=== PATIENT | male | born 1995 | race American Indian/Alaskan Native ===

== ENCOUNTER 2019-02-06 12:12 | Observation (INO) | payer MEDICAID ==
[2019-02-06] MEDS ORDERED: Acetaminophen 325 MG Tab PO PRN (12:43)
--- NOTE | 2019-02-06 12:57 | PCM.HP ---
H&P History of Present Illness - General Date of Service: 02/06/19 Admit Problem/Dx: Admission Diagnosis/Problem Admission Diagnosis/Problem Poor feeding Source of Information: EMS Notes Reviewed, Family, Alf Records History Limitations: Reports: Physical Impairment - History of Present Illness Initial Comments - Free Text/Narative: Patient is resident of [facility] in [place] with PMH remarkable for cerebral palsy, profound intellectual disability/ developmental delay, legal blindness. He requires 24/7 care. He is poor historian due to profound developmental delay.Services that follow with patient include Audiology, Optometry, PT/OT, Practical Nursing Faculty, and Psychiatrist/Psychologist.Patient recently evaluated by Psychiatry- placed on Lexapro daily, as well as Ativan PRN. He was transferred from the clinic today for poor oral intake. As per healthcare recruiter, patient developed oral/cold sores about 2 to 3 weeks ago. They have applied OTC cold sore treatment without relief.As a result he is not been able to feed well. This has gotten worse so was brought to the clinic. He has not had fever or chills. No nausea, vomiting, diarrhea, cough. Hospitalist was consulted for admission for further management. Onset of Symptoms: Reports: Gradual Duration of Symptoms: Reports: Day(s): Improves with: Reports: None Worsens with: Reports: None Associated Symptoms: Reports: No Other Symptoms - Related Data Allergies/Adverse Reactions: Allergies Allergy/AdvReac Type Severity Reaction Status Date / Time No Known Allergies Allergy Verified 02/06/19 12:16 H&P Review of Systems - Review of Systems: Review Of Systems: Unable To Obtain (Info obtained from healthcare recruiter.) General: Reports: No Symptoms HEENT: Reports: No Symptoms Pulmonary: Reports: No Symptoms Cardiovascular: Reports: No Symptoms Gastrointestinal: Reports: No Symptoms Genitourinary: Reports: No Symptoms Musculoskeletal: Reports: No Symptoms Skin: Reports: No Symptoms Psychiatric: Reports: No Symptoms Neurological: Reports: No Symptoms Hematologic/Lymphatic: Reports: No Symptoms Immunologic: Reports: No Symptoms Exam - Exam Exam: See Below - Vital Signs Vital Signs: Last Vital Signs Temp 98.1 F 02/06/19 12:16 Pulse Resp BP Pulse Ox Weight: 86 lb 6.4 oz - Exam General: Alert, Oriented, 4 HEENT: TMs Clear, Other (Patient not cooperative. Poor oral hygiene note. Superficial ulcer note on hard palate.) Neck: Supple, Trachea Midline, 2 Lungs: Clear to Auscultation, Normal Respiratory Effort Cardiovascular: Regular Rate, Regular Rhythm GI/Abdominal Exam: Normal Bowel Sounds, Soft, Non-Tender, No Organomegaly, No Distention, No Abnormal Bruit, No Mass, Pelvis Stable (Male) Exam: No Hernia, Normal Inspection, Normal Prostate, Circumcised Rectal (Males) Exam: Normal Exam, Normal Rectal Tone, Prostate Normal Back Exam: Normal Inspection, Full Range of Motion, NT Extremities: Normal Inspection, Normal Range of Motion, Non-Tender, No Pedal Edema, Normal Capillary Refill Skin: Warm, Dry, Intact Neurological: Cranial Nerves Intact, Reflexes Equal Bilateral Neuro Extensive - Mental Status: Alert, Oriented x3, Normal Mood/Affect, Normal Cognition Neuro Extensive - Motor, Sensory, Reflexes: CN II-XII Intact, Normal Gait, Normal Reflexes Psychiatric: Alert, Normal Affect, Normal Mood - Problem List (1) Poor appetite SNOMED Code(s): 62890470 ICD Code: R63.0 - ANOREXIA Status: Acute Current Visit: Yes (2) Poor oral hygiene SNOMED Code(s): 569277140 ICD Code: Z91.89 - OTH PERSONAL RISK FACTORS, NOT ELSEWHERE CLASSIFIED Status: Acute Current Visit: Yes (3) Aphthous ulcer SNOMED Code(s): 480303358 ICD Code: K12.0 - RECURRENT ORAL APHTHAE Status: Acute Current Visit: Yes (4) Mental and behavioral problem SNOMED Code(s): 546983693 ICD Code: F48.9 - NONPSYCHOTIC MENTAL DISORDER, UNSPECIFIED; F69 - UNSPECIFIED DISORDER OF ADULT PERSONALITY AND BEHAVIOR Status: Acute Current Visit: Yes Problem List Initiated/Reviewed/Updated: Yes Orders Last 24hrs: Active Orders 24 hr Category Date Time Status Patient Status [ADT] Routine ADT 02/06/19 12:43 Ordered Ambulate [RC] ASDIRECTED Care 02/06/19 12:43 Ordered Antiembolic Devices [RC] .Routine Care 02/06/19 12:46 Ordered Intake and Output [RC] QSHIFT Care 02/06/19 12:45 Ordered Notify Provider Vital Signs [RC] ASDIRECTED Care 02/06/19 12:45 Ordered VTE/DVT Education [RC] PER UNIT ROUTINE Care 02/06/19 12:46 Ordered Vital Signs [RC] Q4H Care 02/06/19 12:43 Ordered Consult to Community Nursing Services [Consult to Home Cons 02/06/19 12:48 Ordered Health] [CONS] Routine Regular Diet [DIET] Diet 02/06/19 Lunch Ordered BASIC METABOLIC PANEL,BMP [CHEM] Routine Lab 02/06/19 12:43 Ordered CBC WITH AUTO DIFF [HEME] Routine Lab 02/06/19 12:43 Ordered Acetaminophen [Tylenol] Med 02/06/19 12:43 Ordered 650 mg PO Q6H PRN Dextrose 5%-Normal Saline @ 75 MLS/HR(1000ml) Med 02/06/19 13:00 Ordered Dextrose 5%-0.9% NaCl [Dextrose 5%-Normal Saline] 1,000 ml IV ASDIRECTED Heparin Sodium Med 02/06/19 12:45 Ordered 5,000 units SUBCUT Q12H DVT/VTE Prophylaxis Reflex [OM.PC] Routine Oth 02/06/19 12:43 Ordered Resuscitation Status Routine Resus Stat 02/06/19 12:43 Ordered Medication Orders Acetaminophen (Tylenol) 650 mg PO Q6H PRN PRN Reason: Pain (mild 1-3 )/fever Heparin Sodium (Porcine) (Heparin Sodium) 5,000 units SUBCUT Q12H LINDA Assessment/Plan Comment:: Jordi a 23 y.o.male[facility] alf in [place].PMH remarkable for cerebral palsy, profound intellectual disability/ developmental delay, legal blindness. He was brought to the clinic today due to poor oral intake. Poor Oral intake due to Alphthous ulcers with poor oral hygiene Admit to general medical floor monitor vitals IV hydration with D5 in 0.9% N/S @ 75 cc Ensure proper oral hygiene Magic mouth wash 4 x daily Send for routine labs, cbc, BMP Cerebral palsy/profound intellectual disability/developmental delay/legal blindness. Was recently placed on lexapro daily, as well as Ativan PRN by psychiatry. Will continue Regular diet Full code
[2019-02-06] MEDS: LORazepam 1 MG Tab PO PRN ×2 (13:41→22:11)
[2019-02-06] MEDS: LIDOCAINE 2% PO SCH ×9 (13:59→22:12)
[2019-02-06] MEDS: SIMETH PO SCH ×9 (13:59→22:12)
[2019-02-06] MEDS: ALUM HYDROX PO SCH ×9 (13:59→22:12)
[2019-02-06] MEDS: MAG HYDROX PO SCH ×9 (13:59→22:12)
[2019-02-06] MEDS: DIPHENHYDRAMINE PO SCH ×9 (13:59→22:12)
[2019-02-06] MEDS: Dextrose 5%-0.9% NaCl 1,000 ML IV SCH (15:28)
[2019-02-06 15:29] LABS: ANION GAP 11.7; CHLORIDE,CL 105 mmol/L (101-111); SODIUM,NA 142 mmol/L (135-145)
[2019-02-06] MEDS ORDERED: Non-Formulary Medication 1 Each PO SCH (17:00)
[2019-02-06] MEDS ORDERED: Escitalopram 10 MG Tab PO SCH (21:00)
[2019-02-06] MEDS: Hydrocortisone 2.5% Crm 30 GM Tube TOP SCH (22:09)
[2019-02-06] MEDS: Heparin Sodium 5,000 Units/ML Vial SUBCUT SCH (22:11)
[2019-02-07] MEDS: Dextrose 5%-0.9% NaCl 1,000 ML IV SCH (04:07)
[2019-02-07] MEDS: LIDOCAINE 2% PO SCH ×3 (09:40)
[2019-02-07] MEDS: Heparin Sodium 5,000 Units/ML Vial SUBCUT SCH (09:40)
[2019-02-07] MEDS: MAG HYDROX PO SCH ×3 (09:40)
[2019-02-07] MEDS: ALUM HYDROX PO SCH ×3 (09:40)
[2019-02-07] MEDS: DIPHENHYDRAMINE PO SCH ×3 (09:40)
[2019-02-07] MEDS: SIMETH PO SCH ×3 (09:40)
[2019-02-07] MEDS: Hydrocortisone 2.5% Crm 30 GM Tube TOP SCH (09:55)
--- NOTE | 2019-02-07 10:34 | PCM.DCSUM1 ---
Discharge Summary - Hospital Course Free Text/Narrative:: Patient is resident of [facility] in [place] with PMH remarkable for cerebral palsy, profound intellectual disability/ developmental delay, legal blindness. He requires 24/7 care. He is poor historian due to profound developmental delay.Services that follow with patient include Audiology, Optometry, PT/OT, Ophthalmic Technician Apprentice, and Psychiatrist/Psychologist.Patient recently evaluated by Psychiatry- placed on Lexapro daily, as well as Ativan PRN. He was transferred to the hospital for poor oral intake. As per ambulatory care coordinator, patient developed oral/cold sores about 2 to 3 weeks ago. They have applied OTC cold sore treatment without relief.Patient was admitted to the hospital and hydrated with intravenous fluids. We started him on combination of lidocaine and Benadryl for this. He has improved. [facility] Final diagnosis Malnutrition Profound developmental delay Cerebral palsy Aphtous Ulcers - Discharge Data Discharge Date: 02/07/19 Discharge Disposition: Home, Self-Care 01 Condition: Good - Patient Summary/Data Consults: Consultations 02/06/19 12:48 Consult to Community Nursing Services [Consult to Home Health] [CONS] Routine - Patient Instructions Activity: As Tolerated Driving: Do Not Drive - Discharge Plan Prescriptions/Med Rec: Acetaminophen [Tylenol] 650 mg PO Q6H PRN #30 tablet PRN Reason: Pain (mild 1-3 )/fever Alum Hydrox/Mag Hydrox/Simeth [Mag-Al Plus] 30 ml PO QID 5 Days #15 cup diphenhydrAMINE [Benadryl] 30 mg PO QID 5 Days #200 cup Lidocaine 2% [Xylocaine 2% Viscous] 30 ml PO QID #5 cup Home Medications: Home Meds Escitalopram [Lexapro] 10 mg PO BEDTIME 02/06/19 [History] Hydrocortisone [Hydrocortisone 2.5% Crm] 1 applic TOP BID 02/06/19 [History] LORazepam [Ativan] 2 mg PO Q8HR PRN 02/06/19 [History] Acetaminophen [Tylenol] 650 mg PO Q6H PRN #30 tablet 02/07/19 [Rx] Alum Hydrox/Mag Hydrox/Simeth [Mag-Al Plus] 30 ml PO QID 5 Days #15 cup [Rx] Lidocaine 2% [Xylocaine 2% Viscous] 30 ml PO QID #5 cup 02/07/19 [Rx] diphenhydrAMINE [Benadryl] 30 mg PO QID 5 Days #200 cup 02/07/19 [Rx] Patient Handouts: Lidocaine oral solution, Acetaminophen tablets or caplets, Aluminum Hydroxide; Magnesium Hydroxide; Simethicone oral suspension, Diphenhydramine oral syrup or elixir - Discharge Summary/Plan Comment DC Time >30 min.: Yes - General Info Date of Service: 02/07/19 Subjective Update: Limited hx due to pateint factor Functional Status: Reports: Pain Controlled, Tolerating Diet - Review of Systems General: Reports: No Symptoms Psychiatric: Reports: Other (Restless) - Patient Data Vitals - Most Recent: Last Vital Signs Temp 36.7 C 02/07/19 05:52 Pulse 88 02/07/19 05:52 Resp 18 02/07/19 05:52 BP 105/69 02/06/19 22:00 Pulse Ox 98 02/07/19 05:52 Weight - Most Recent: 35.289 kg I&O - Last 24 hours: Intake & Output 02/06/19 02/07/19 02/07/19 22:59 06:59 14:59 Intake Total 240 973 248 Balance 240 973 248 Lab Results - Last 24 hrs: Laboratory Results - last 24 hr 02/06/19 02/06/19 02/06/19 Range/Units 15:10 15:10 23:50 WBC 8.1 (5.0-10.0) 10^3/uL RBC 4.73 (4.6-6.2) 10^6/uL Hgb 13.2 L (14.0-18.0) g/dL Hct 40.2 (40.0-54.0) % MCV 85.0 (80-100) fL MCH 27.9 (27.0-34.0) pg MCHC 32.8 L (33.0-35.0) g/dL Plt Count 190 (150-450) 10^3/uL Neut % (Auto) 63.3 (42.2-75.2) % Lymph % (Auto) 20.3 L (20.5-50.1) % [place] % (Auto) 14.5 H (2-8) % Eos % (Auto) 1.7 (1.0-3.0) % Baso % (Auto) 0.2 (0.0-1.0) % Sodium 142 (135-145) mmol/L Potassium 3.7 (3.6-5.0) mmol/L Chloride 105 (101-111) mmol/L Carbon Dioxide 29.0 (21.0-31.0) mmol/L Anion Gap 11.7 BUN 21 H (7-18) mg/dL Creatinine 0.7 (0.6-1.3) mg/dL Est Cr Clr Drug Dosing TNP Estimated GFR (MDRD) > 60 Glucose 120 H (74-105) mg/dL Calcium 9.0 (8.4-10.2) mg/dl HIV-1 Antibody Non-reactive (NONREACTIVE) HIV-2 Antibody Non-reactive (NONREACTIVE) HIV P24 Antigen Non-reactive (NONREACTIVE) Med Orders - Current: Current Medications Acetaminophen (Tylenol) 650 mg PO Q6H PRN PRN Reason: Pain (mild 1-3 )/fever Lidocaine HCl 30 ml/ Al Hydroxide/Mg Hydroxide 30 ml/Diphenhydramine HCl 30 mg 0 ml PO QID [facility] Last Admin: 02/07/19 09:40 Dose: 5 ml Escitalopram Oxalate (Lexapro) 10 mg PO BEDTIME [facility] Last Admin: 02/06/19 22:11 Dose: 10 mg Heparin Sodium (Porcine) (Heparin Sodium) 5,000 units SUBCUT Q12H [facility] Last Admin: 02/07/19 09:40 Dose: Not Given Hydrocortisone (Hydrocortisone 2.5% Crm) 0 gm TOP BID [facility] Last Admin: 02/07/19 09:55 Dose: Not Given Dextrose/Sodium Chloride (Dextrose 5%-Normal Saline) 1,000 mls @ 75 mls/hr IV ASDIRECTED [facility] Last Admin: 02/07/19 04:07 Dose: 75 mls/hr Lorazepam (Ativan) 2 mg PO Q8HR PRN PRN Reason: Anxiety Last Admin: 02/06/19 22:11 Dose: 2 mg - Exam General: Reports: Other (Restless but at baseline) Lungs: Reports: Clear to Auscultation, Normal Respiratory Effort Cardiovascular: Reports: Regular Rate, Regular Rhythm GI/Abdominal Exam: Normal Bowel Sounds, Soft, Non-Tender, No Organomegaly, No Distention, No Abnormal Bruit, No Mass, Pelvis Stable Skin: Reports: Warm
== END 2019-02-07 10:50 | disposition home or self-care (01) ==
LOC: UNDOADMOB 12:12 → DL.MS 12:12
PROVIDERS: ADMIT Student in an Organized Health Care Education/Training Program; ATTEND Student in an Organized Health Care Education/Training Program
DX: K12.0 Recurrent oral aphthae (principal); E46 Unspecified protein-calorie malnutrition; G80.9 Cerebral palsy, unspecified; H54.8 Legal blindness, as defined in USA; F48.9 Nonpsychotic mental disorder, unspecified; Z91.89 Other specified personal risk factors, not elsewhere classified; Z79.899 Other long term (current) drug therapy
CPT/HCPCS: 36415; 80048; 85025; 86317; 86803; 87389; 96360; 96361; 96372; A9270; G0378; G0379; J1644; J7042

== ENCOUNTER 2019-03-21 10:04 | Emergency (ER) | payer MEDICAID ==
--- NOTE | 2019-03-21 11:03 | CR ---
Clinical history: 23-year-old mentally challenged patient with question of foreign body in the stool (sausage casing?). Interpretation: Single upright PA film lower lung cramer abdomen and pelvis reveals no sign of radiopaque foreign body, abdominal mass or free intraperitoneal air. Note: Ill-defined nodule left lung base. *Scattered air-fluid levels in the nondistended small intestine lying centrally and suggestion possible inguinal hernia on the right. Close correlation please. No abdominal soft tissue mass or pathologic intraperitoneal calcifications. Mild dorsolumbar scoliosis. Symmetric spacing normal-appearing hips.
--- NOTE | 2019-03-21 11:05 | EDM.PDOC ---
ED HPI GENERAL MEDICAL PROBLEM - General Chief Complaint: Gastrointestinal Problem Stated Complaint: BM WITH FOREIGN OBJECT IN IT Time Seen by Provider: 03/21/19 11:05 Source of Information: Reports: RN, RN Notes Reviewed, Other ([facility] caregiver ) History Limitations: Reports: Physical Impairment (non-verbal pt) - History of Present Illness INITIAL COMMENTS - FREE TEXT/NARRATIVE: Caregiver presents pt from the [facility] with report that he was not as active as normal and had a decreased appetite, then this morning he had a BM with a foreign body that looked like a "sausage casing". Since he had the BM the caregiver states that his behavior is "pretty much back to normal". The caregiver does not know if he will eat yet or not. Caregiver denies the pt has had any recent fever, chills, vomiting, abdominal distention, hernia bulges, bloody stool, or any other symptoms. Pt is non-verbal. The caregiver states the pt will put "anything" in his mouth, and although he has not been formally diagnosed with pica, he once ate a section of a wall ( sheetrock, etc). Onset: Unknown/Unsure Duration: Resolved Prior to Arrival Associated Symptoms: Reports: No Other Symptoms - Related Data Allergies Allergy/AdvReac Type Severity Reaction Status Date / Time apple Allergy Cannot Verified 02/06/19 13:03 Remember prunes Allergy Cannot Verified 02/06/19 13:03 Remember Home Meds: Home Meds Escitalopram [Lexapro] 10 mg PO BEDTIME 02/06/19 [History] Hydrocortisone [Hydrocortisone 2.5% Crm] 1 applic TOP BID 02/06/19 [History] LORazepam [Ativan] 2 mg PO Q8HR PRN 02/06/19 [History] Acetaminophen [Tylenol] 650 mg PO Q6H PRN #30 tablet 02/07/19 [Rx] Alum Hydrox/Mag Hydrox/Simeth [Mag-Al Plus] 30 ml PO QID 5 Days #15 cup [Rx] Lidocaine 2% [Xylocaine 2% Viscous] 30 ml PO QID #5 cup 02/07/19 [Rx] diphenhydrAMINE [Benadryl] 30 mg PO QID 5 Days #200 cup 02/07/19 [Rx] Past Medical History HEENT History: Reports: Glaucoma, Other (See Below) Other HEENT History: Blindness, herpes labialis Neurological History: Reports: Cerebral Palsy, Other (See Below) Other Neuro History: profound intellectual disability Psychiatric History: Reports: Other (See Below) Other Psychiatric History: Behavioral disturbance - Infectious Disease History Infectious Disease History: Reports: Herpes Social & Family History - Tobacco Use Smoking Status *Q: Never Smoker Second Hand Smoke Exposure: No - Recreational Drug Use Recreational Drug Use: No - Living Situation & Occupation Living situation: Reports: Extended Care Facility ([facility] resident) Occupation: Disabled ED ROS GENERAL - Review of Systems Review Of Systems: Unable To Obtain ED EXAM, GENERAL - Physical Exam Exam: See Below Exam Limited By: Physical Impairment General Appearance: Alert, No Apparent Distress Nose: Normal Inspection Throat/Mouth: Normal Inspection Head: Atraumatic, Normocephalic Neck: Normal Inspection Respiratory/Chest: No Respiratory Distress, Lungs Clear, Normal Breath Sounds, No Accessory Muscle Use, Chest Non-Tender Cardiovascular: Regular Rate, Rhythm, Tachycardia GI/Abdominal: Normal Bowel Sounds, Soft, Non-Tender, No Distention Neurological: Alert, Other (Active, at neuro/behavioral baseline per caregiver) Skin Exam: Warm, Dry Course - Vital Signs Last Recorded V/S: Last Vital Signs Temp 36.0 C 03/21/19 10:09 Pulse 120 H 03/21/19 10:09 Resp 18 03/21/19 10:09 BP Pulse Ox 97 03/21/19 10:09 - Radiology Interpretation Free Text/Narrative:: XR Abdomen: non-obstructive bowel gas pattern, ill defined nodule in left lung base, possible Rt inguinal hernia, see Rad. report. - Re-Assessments/Exams Free Text/Narrative Re-Assessment/Exam: 03/21/19 11:36 Pt appears well, active, normal bowel tones, and non-tender, non-distended abdomen. I see no indication for further evaluation in the ER at this time, and plan to d/c the pt back to [facility] Home. I will call the pt's PCP, Shilo Lawton NP, to inform her of the findings and ensure that she follows up on the pt. Departure - Departure Time of Disposition: 11:14 Disposition: Home, Self-Care 01 Condition: Good Clinical Impression: Pica in adults, Encounter for medical screening examination Swallowed foreign body Qualifiers: Encounter type: initial encounter Qualified Code(s): T18.9XXA - Foreign body of alimentary tract, part unspecified, initial encounter - Discharge Information *PRESCRIPTION DRUG MONITORING PROGRAM REVIEWED*: Not Applicable *COPY OF PRESCRIPTION DRUG MONITORING REPORT IN PATIENT LETI: Not Applicable Instructions: Swallowed Foreign Body, Adult Forms: ED Department Discharge Additional Instructions: Diet and activity as tolerated. Follow up with primary doctor if any new symptoms or other concerns develop.
== END 2019-03-21 11:22 | disposition home or self-care (01) ==
LOC: DL.ED 10:04
DX: T18.9XXA Foreign body of alimentary tract, part unspecified, initial encounter (principal); Z79.899 Other long term (current) drug therapy; Z91.018 Allergy to other foods
CPT/HCPCS: 74018; 99284-25

== ENCOUNTER 2022-09-12 13:19 | Emergency (ER) | payer MEDICAID | END 2022-09-12 15:37 | disposition home or self-care (01) | LOC: DL.ED 13:19 | DX: S01.112A Laceration without foreign body of left eyelid and periocular area, initial encounter (principal); Z91.018 Allergy to other foods; Z79.899 Other long term (current) drug therapy; W26.8XXA Contact with other sharp object(s), not elsewhere classified, initial encounter | CPT/HCPCS: 99282 ==

== ENCOUNTER 2025-04-28 18:09 | Emergency (ER) | payer MEDICAID ==
[2025-04-28] MEDS: Lidocaine 1% 5 ML VIAL INJECT ONE (18:55)
[2025-04-28] MEDS: Ondansetron 4 MG/2 ML SDV IVPUSH ONE (18:55)
[2025-04-28] MEDS: Ketamine 500 mg/10 ML MDV IV ONE (18:55)
[2025-04-28] MEDS: Midazolam 1 MG/ML 2 ML SDV IVPUSH ONE (18:55)
== END 2025-04-28 19:14 | disposition home or self-care (01) ==
LOC: DL.ED 18:09
DX: S01.81XA Laceration without foreign body of other part of head, initial encounter (principal); Z91.018 Allergy to other foods; Z91.048 Other nonmedicinal substance allergy status; W01.198A Fall on same level from slipping, tripping and stumbling with subsequent striking against other object, initial encounter
CPT/HCPCS: 12011; 96374; 96375; 99282; 99283; J2003; J2250; J2405; J3490